=== PATIENT | male | born 1960 | race Hispanic/Latino ===

== ENCOUNTER 2020-02-12 12:32 | Inpatient (IN) | payer OTHER, SELFPAY ==
[2020-02-12] MEDS ORDERED: Adacel (T-DAP) 0.5 ML SYRINGE ONE (12:52)
[2020-02-12] MEDS ORDERED: Morphine 4 MG/ML VIAL ONE (12:52)
--- NOTE | 2020-02-12 12:59 | RAD ---
There is soft tissue swelling about the ankle. Right ankle 3 views HISTORY: Fall. Injury. FINDINGS: Ankle mortise and talar dome are intact with mild osteophytosis. Small lobular calcifications measuring up to 0.4 cm greatest diameter project immediately posterior t o the articular surface of the distal tibia on the lateral view. On the oblique view, a thin linear 0.9 cm ossific fragment with irregular internal margins lies immediately adjacent to the distal talus . Calcaneus is unremarkable on the lateral view. IMPRESSION : Small ossific avulsion from the anterior lateral talus. Probable small intracapsular loose bodies within the posterior joint capsular recess.
--- NOTE | 2020-02-12 13:17 | RAD ---
LEFT ANKLE THREE VIEWS: 02/12/20 HISTORY: Injury from trauma. Fell off a roof. Comminuted calcaneal fracture is noted with vertical fractures extending into the talocalcaneal sinus tarsi region as well as some fractures extending anteriorly into the anterior calcaneus and a somewh at horizontal fracture extending posteriorly resulting in a tongue type fracture. There is marked fla ttening of Bohler's angle. IMPRESSION: Comminuted calcaneal fracture with loss of Bohler's angle. POS: [facility]
[2020-02-12 13:20] LABS: #Eosinphils 0.2 thou/uL (0.0-0.7); #Monocytes 0.7 thou/uL (0.11-0.59); #Neutrophils 4.8 thou/uL (1.40-6.50); %Basophils 0.3 % (0.0-1.0); %Eosinophils 2.5 % (0.0-10.0); %Lymphocytes 34.4 % (21.0-51.0); %Monocytes 7.6 % (0.0-10.0); %Neutrophils 55.2 % (42.0-75.0); Hemoglobin 14.5 g/dL (14.0-18.0); Mean Corpuscular HGB CONC 33.2 g/dL (32.0-36.0); Mean Corpuscular Hemoglobin 32.1 pg (27.0-31.0); Mean Corpuscular Volume 96.9 fL (78.0-98.0); Mean Platelet Volume 8.2 fL (7.4-10.4); Platelet Count 191 thou/uL (130-400); RBC Distribution Width 11.8 % (11.5-14.5); Red Blood Cell (RBC) Count 4.51 mill/uL (4.70-6.10); White Blood Cell (WBC) Count 8.6 thou/uL (4.8-10.8)
[2020-02-12 13:27] LABS: INR-International Normal Ratio 1.1; PTT 25.6 SEC (22.9-36.1); Prothrombin Time 13.9 sec (12.0-14.7)
[2020-02-12 13:42] LABS: ALT (SGPT) 36 U/L (8-55); AST (SGOT) 27 U/L (5-34); Albumin 3.6 g/dL (3.5-5.0); Alkaline Phosphatase 83 U/L (40-110); Anion Gap 11 mmol/L (10-20); BUN (Urea Nitrogen) 18 mg/dL (8.4-25.7); Bilirubin, Total 0.6 mg/dL (0.2-1.2); Calc. Creatinine Clearance 0 mL/min (70-130); Calcium 7.9 mg/dL (7.8-10.44); Carbon Dioxide 22 mmol/L (22-29); Chloride 111 mmol/L (98-107); Estimated GFR-MDRD 75; Globulin 2.5 g/dL (2.4-3.5); Glucose 124 mg/dL (70-105); Potassium 3.7 mmol/L (3.5-5.1); Protein, Total 6.1 g/dL (6.0-8.3); Sodium 140 mmol/L (136-145)
--- NOTE | 2020-02-12 13:54 | CT ---
CERVICAL SPINE CT SCAN WITHOUT IV CONTRAST: 02/12/20 HISTORY: Injury from trauma. FINDINGS: Multilevel disc osteophytosis and facet arthrosis. No evidence for acute fracture or facet dislocatio n. IMPRESSION: Cervical spondylosis without fracture or dislocation. POS: [facility]
--- NOTE | 2020-02-12 14:06 | CT ---
CHEST, ABDOMEN AND PELVIC CT SCAN WITH IV CONTRAST: THORACIC SPINE CT SCAN WITH IV CONTRAST LIMITED LUMBAR SPINE CT SCAN WITH IV CONTRAST LIMITED 02/12/20 HISTORY: Injury from trauma. Chest, abdomen and pelvic CT scan with IV contrast . No evidence for pneumothorax or pleural effusion. No mediastinal hematoma. The aorta appears unremark able. Small hiatal hernia. The visualized liver, gallbladder, pancreas, spleen, adrenal glands are un remarkable. There is some fairly extensive fat stranding in the central mesentery with an associated pseudocapsule appearance with some minimally enlarged mesenteric lymph nodes, evidence for mesent katya panniculitis. It is conceivable given history of recent trauma that this could represent some re present some component of mesenteric contusion but this is a fairly classic appearance for mesenteric panniculitis. No free intraperitoneal fluid within the abdomen or pelvis. No evidence for retroperit flores hematoma. Small fat containing left inguinal and umbilical hernias. IMPRESSION: No significant acute posttraumatic process in the chest, abdomen or pelvis. 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 Other findings as above. THORACIC SPINE CT SCAN WITH IV CONTRAST LIMITED: 02/12/20 IMPRESSION: Thoracic spondylosis without acute fracture or dislocation. LUMBAR SPINE CT SCAN WITH IV CONTRAST LIMITED: IMPRESSION: Disc osteophytosis at L4-L5 with some associated stenosis. No fracture or dislocation. POS: [facility]
[2020-02-12] MEDS ORDERED: Dextrose 50% Abboject 50 ML SYRINGE SLOW IVP PRN (14:23)
[2020-02-12] MEDS ORDERED: Dextrose 5% in Water 1,000 ML IV PRN (14:23)
[2020-02-12] MEDS ORDERED: Morphine 4 MG/ML VIAL SLOW IVP PRN (14:23)
[2020-02-12] MEDS ORDERED: hydrALAZINE 20 MG/ML VIAL SLOW IVP PRN (14:23)
[2020-02-12] MEDS ORDERED: Morphine 2 MG/ML SYRINGE SLOW IVP PRN (14:23)
[2020-02-12] MEDS ORDERED: Ondansetron PF 4 MG/2 ML Vial IVP PRN ×2 (14:23→18:24)
[2020-02-12] MEDS ORDERED: TETANUS AND DIPHTHERIA TOX/PF 0.5 ML DISP.SYRIN IM ONE (14:23)
[2020-02-12] MEDS ORDERED: Bacitracin 1 PK ONE (14:24)
[2020-02-12] MEDS ORDERED: traMADol HCl 50 MG TAB PO PRN ×2 (14:26→18:24)
[2020-02-12] MEDS ORDERED: Cyclobenzaprine 10 MG TAB PO PRN (14:26)
[2020-02-12] MEDS ORDERED: Ibuprofen 600 MG TAB PO PRN (14:26)
[2020-02-12] MEDS ORDERED: Sodium Chloride 0.9% 1,000 ML IV SCH (14:30)
[2020-02-12 14:51] LABS: CK (CPK) 83 U/L (30-200); Magnesium 1.7 mg/dL (1.6-2.6); Phosphorus 2.1 mg/dL (2.3-4.7)
[2020-02-12] MEDS ORDERED: Lidocaine 1% PF 5 ML VIAL ONE (14:57)
[2020-02-12] MEDS ORDERED: Dexamethasone 20 MG/5 ML VIAL ONE (14:57)
[2020-02-12] MEDS ORDERED: Succinylcholine Chloride 20 MG/ML 10 ml SYRINGE FS ONE (14:57)
[2020-02-12] MEDS ORDERED: Glycopyrrolate 0.2 MG/ML 5 ML SYRINGE ONE (14:57)
[2020-02-12] MEDS ORDERED: PROPOFOL 200 MG/20 ML VIAL ONE (14:57)
[2020-02-12] MEDS ORDERED: PHENYLEPHRINE-NS 100 MCG/ML 10 ML SYRINGE ONE (14:57)
[2020-02-12] MEDS ORDERED: Ondansetron PF 4 MG/2 ML Vial ONE (14:57)
[2020-02-12] MEDS ORDERED: Rocuronium Bromide 10 MG/ML (10ML VIAL) ONE (14:57)
[2020-02-12] MEDS ORDERED: Potassium Phosphate 30 MMOL in Sodium Chloride 0.9% 500 ML IVPB SCH (15:15)
[2020-02-12] MEDS ORDERED: HYDROmorphone 0.5 MG/0.5 ML SYRINGE ONE (15:15)
[2020-02-12] MEDS ORDERED: Midazolam HCl 2 mg/2 ml Vial ONE (15:15)
[2020-02-12] MEDS ORDERED: Fentanyl 100 MCG/2 ML VIAL ONE (15:15)
[2020-02-12] MEDS ORDERED: Lidocaine 2% Jelly 5 ML TUBE ONE (15:15)
--- NOTE | 2020-02-12 16:19 | HP ---
This is Christina Michael NP dictating a report for Ever Nichols DO. REQUESTING ER PHYSICIAN: Dr. Tomlin PRIMARY CARE PHYSICIAN: Dr. Liao CONSULTS: Orthopedic SURGERY, Dr. Shea. CHIEF COMPLAINT: Fall from roof, approximately 20 feet, landing on both feet. 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 The patient was attempting to get off the roof using the ladder. The ladder slipped away from him, causing him to fall. He grabbed onto the gutters, the gutters bent and the patient ended up falling onto the concrete ground, landing on both feet. The patient denies hitting his head or losing any consciousness. The patient reports bilateral hand lacerations from the gutters and bilateral feet pain. The patient's pain is currently controlled at this time. The patient was given a tetanus injection, Ancef 2 g IV, and morphine 4 mg IV for pain. The patient refuses repair of finger lacerations with sutures in the emergency room. He reports he gets cuts like this all the time and he doesn't need the sutures. The wounds were cleaned in the ER, antibiotic ointment and bandages applied. Denies neck pain. C-collar cleared. PAST MEDICAL HISTORY: High cholesterol. CURRENT MEDICATIONS: Atorvastatin. ALLERGIES: NO KNOWN DRUG ALLERGIES. SURGICAL HISTORY: Right hand surgery. SOCIAL HISTORY: Denies alcohol use, denies illicit drug use, denies history of smoking or current smoking. REVIEW OF SYSTEMS: A 10-point review of systems is negative unless indicated in the above HPI. OBJECTIVE: VITAL SIGNS: Temperature 98.1, pulse 75, respirations 16, blood pressure 143/72, and SpO2 of 99% on room air. GENERAL: Well-appearing middle aged male, lying in hospital bed in a cervical collar, in no acute distress. HEENT: Head is atraumatic and normocephalic. Pupils are equal bilateral. Extraocular muscles are intact. Mucous membranes are moist. Midface is stable. Oropharynx exam is normal and normal teeth. NECK: No cervical spine tenderness. Normal range of motion. No pain with movement. Trachea midline. No JVD. RESPIRATORY: Equal chest rise and fall. Bilateral breath sounds clear. No wheezing, rales, or rhonchi. Abrasion to right mid axillary. CARDIOVASCULAR: Regular rate and regular rhythm. No murmurs. No pedal edema. ABDOMEN: Soft, nontender, and nondistended. Active bowel sounds. BACK: Tenderness to lumbar spine. Normal range of motion in all extremities. Neurovascularly intact in all extremities. EXTREMITIES: Left lower extremity with ecchymosis and swelling to the left ankle. Distal pulses 2+. Right ankle with ecchymosis, swelling. Distal pulses 2+. Bilateral hands with avulsion type lacerations, left palmar aspect of the distal phalanx of the 4th finger and the palmar aspect of the right hand and other avulsion approximately 1 cm at the proximal phalanx of the 3rd digit. A 2 cm laceration on the palmar aspect of the distal phalanx on the right 2nd digit. There is no active bleeding. NEUROLOGIC: No focal deficits. GCS is 15. LABORATORY DATA: WBC 8.5, RBC 4.51, hemoglobin 14.5, hematocrit 43.7, and platelets 191. PT 13.9, INR 1.1, and aPTT 25.6. Sodium 140, potassium 3.7, chloride 111, carbon dioxide 22, BUN 18, creatinine 1.02, estimated GFR 75, glucose 124, and calcium 7.9. AST 27, ALT 36, alkaline phosphatase 83, and albumin 3.6. DIAGNOSTIC DATA: 1. Right ankle x-ray, impression: Small ossified avulsion from the anterior lateral talus. Probable small intracapsular loose bodies within the posterior joint capsular recess. 2. Left ankle x-ray, impression: Comminuted calcaneal fracture with loss of Bohler's angle. 3. Chest, abdomen, and pelvis CT, impression: No significant acute posttraumatic process in the chest, abdomen, or pelvis. 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 Thoracic spondylosis without acute fracture or dislocation. Disk osteophytosis at L4-L5 with some associated stenosis. No fracture or dislocation. 4. Cervical spine CT, impression: Cervical spondylosis without fracture or dislocation. IMPRESSION: 1. Status post fall from roof, approximately 20 feet. 2. Left comminuted calcaneal fracture with loss of Bohler's angle. 3. Right small avulsion fracture from the anterior lateral talus and small intracapsular loose bodies within the posterior joint capsular recess. 4. Bilateral hand avulsion laceration, the patient refused suturing. PLAN: The patient will be n.p.o. with plan for Orthopedic Surgery, Dr. Shea , to repair lower extremity injuries. Maintenance IV fluids with lactated Ringer's at 120 an hour. We will replace electrolytes. We will place the patient on a pain regimen preoperatively and postoperatively. We will have PT and OT evaluate and treat postoperatively. We will repeat labs in the morning. Wound Care to bilateral hands. The patient was seen and evaluated in the ER by Dr. Nichols. Job ID: [id number] MTDD
[2020-02-12] MEDS ORDERED: Bupivacaine PF 0.5% 30 ML VIAL ONE (18:01)
[2020-02-12] MEDS ORDERED: Bisacodyl 10 MG SUPP PR PRN (18:24)
[2020-02-12] MEDS ORDERED: Cepastat Lozenges 1 LOZ PO PRN (18:24)
[2020-02-12] MEDS ORDERED: Fentanyl 100 MCG/2 ML VIAL SLOW IVP PRN (18:24)
[2020-02-12] MEDS ORDERED: Acetaminophen 325 MG TAB PO PRN (18:24)
[2020-02-12] MEDS ORDERED: Fleet Enema 133 ML BOT PR PRN (18:24)
[2020-02-12] MEDS ORDERED: Ondansetron ODT 4 MG TAB PO PRN (18:24)
[2020-02-12] MEDS ORDERED: Milk Of Magnesia 30 ML UDCUP PO PRN (18:24)
--- NOTE | 2020-02-12 18:28 | RAD ---
LEFT FOOT THREE VIEWS: 02/11/30 HISTORY: Preoperative evaluation. COMPARISON: Radiographs same day. Multiple intraoperative fluoroscopic images are obtained. Satisfactory alignment post reduction. IMPRESSION: Satisfactory post reduction alignment. POS: [facility]
[2020-02-12] MEDS ORDERED: Ketorolac Tromethamine 30 MG/ML VIAL ONE (18:44)
--- NOTE | 2020-02-12 19:58 | OP ---
DATE OF PROCEDURE: 02/12/2020 PREOPERATIVE DIAGNOSES: Comminuted left calcaneus fracture and fracture of the lateral wall of the left talus. POSTOPERATIVE DIAGNOSES: Comminuted left calcaneus fracture and fracture of the lateral wall of the left talus. PROCEDURES PERFORMED: Open reduction and internal fixation of the left calcaneus and left talus. ANESTHESIA: General. DESCRIPTION OF PROCEDURE: The patient was given preoperative IV antibiotics, taken to the operating room, placed in supine position. Satisfactory general anesthesia was performed. The left foot, ankle, and leg were sterilely prepped and draped in usual fashion. After exsanguination, tourniquet on the left proximal calf was raised to 250 mmHg. Initially, a transverse incision was made just distal to the fibula in the region of the subtalar joint. Blunt dissection was made. The peroneal tendons were located and retracted out of the way. The lateral wall of the talus was identified, was reduced and internally fixed with 4.0 cannulated screw. Under fluoroscopic visualization, the facet that had been depressed was located. The facet of the calcaneus was pushed up and then bone grafted with allograft bone chips and then two of the threaded Steinmann pins were placed through the posterior aspect of the calcaneus, pulled through the calcaneus, pulled distally, and then the two pins were brought across the calcaneocuboid joint into the cuboid and this provided good reduction of the calcaneus fracture. It was less wide. It established much of its height and improved Bohler's angle. Again, this was all performed under fluoroscopic visualization. The wounds were closed using 0 Vicryl for the deep tissue, and skin was closed with 3-0 Rapide. The wounds were then infiltrated with a total of 20 mL of 0.5% Marcaine plain. Sterile dressing was applied and the patient was placed in tall boots on both. The right ankle and foot required boot because of a small avulsion fracture off the talus that did not require surgical intervention. After the dressing was applied, the tourniquet was released. The patient was awakened, extubated, and transferred to recovery room in stable condition. ESTIMATED BLOOD LOSS: 30 mL. COMPLICATIONS: None. TOURNIQUET TIME: 77 minutes. Job ID: [id number]
[2020-02-12] MEDS ORDERED: Senokot S 8.6-50 MG TAB PO SCH (21:00)
[2020-02-12] MEDS: Lactated Ringer's 1,000 ML IV SCH ×2 (21:15→23:45)
[2020-02-12] MEDS: Senokot S 8.6-50 MG TAB PO SCH (21:16)
[2020-02-12] MEDS: Bacitracin 1 PK TOP SCH (21:16)
[2020-02-12] MEDS: Acetaminophen 500 MG TAB PO SCH ×2 (21:24→23:43)
[2020-02-12] MEDS: traMADol HCl 50 MG TAB PO SCH ×2 (21:24→23:43)
[2020-02-12 22:51] VITALS: BMI 30.9
[2020-02-12] MEDS: Ketorolac Tromethamine 30 MG/ML VIAL IVP SCH (23:44)
[2020-02-12] MEDS ORDERED: CEFAZOLIN 2 GM in Premix Bag 1 BAG IVPB SCH (23:59)
[2020-02-13] MEDS ORDERED: Morphine 4 MG/ML VIAL SLOW IVP PRN (00:10)
[2020-02-13] MEDS: Acetaminophen 500 MG TAB PO SCH ×2 (05:15→11:13)
[2020-02-13] MEDS: CEFAZOLIN 2 GM in Premix Bag 1 BAG IVPB SCH ×2 (05:16→11:15)
[2020-02-13] MEDS: Ketorolac Tromethamine 30 MG/ML VIAL IVP SCH ×2 (05:16→11:14)
[2020-02-13] MEDS: traMADol HCl 50 MG TAB PO SCH ×2 (05:17→11:13)
--- NOTE | 2020-02-13 06:05 | PRG ---
DATE OF SERVICE: 02/12/2020 SUBJECTIVE: The patient was seen this evening during rounds. He was resting comfortably and asleep with no signs of acute distress. Nursing reported no acute events. He is postop after fixation of his talar and calcaneal fractures. OBJECTIVE: VITAL SIGNS: Temperature 98, pulse 62, respirations 18, oxygen saturation 97% on room air, and blood pressure 135/69. ASSESSMENT: 1. Status post fall from ladder 20 feet. 2. Right talus fracture. 3. Left calcaneal fracture. 4. Lacerations to bilateral hands. PLAN: Continue current regular diet. Discontinue IV fluids postoperatively. The patient to start working with Physical and Occupational Therapy tomorrow. Job ID: [id number]
[2020-02-13 06:06] LABS: #Lymphocytes 0.9 thou/uL (1.20-3.40); #Monocytes 0.7 thou/uL (0.11-0.59); #Neutrophils 9.9 thou/uL (1.40-6.50); %Eosinophils 0.2 % (0.0-10.0); %Lymphocytes 7.6 % (21.0-51.0); %Monocytes 5.8 % (0.0-10.0); %Neutrophils 86.4 % (42.0-75.0); Mean Corpuscular HGB CONC 33.7 g/dL (32.0-36.0); Mean Corpuscular Hemoglobin 32.7 pg (27.0-31.0); Mean Corpuscular Volume 97.2 fL (78.0-98.0); Mean Platelet Volume 7.7 fL (7.4-10.4); Platelet Count 143 thou/uL (130-400); RBC Distribution Width 11.9 % (11.5-14.5); Red Blood Cell (RBC) Count 3.97 mill/uL (4.70-6.10); White Blood Cell (WBC) Count 11.5 thou/uL (4.8-10.8)
[2020-02-13 06:14] LABS: Anion Gap 11 mmol/L (10-20); BUN (Urea Nitrogen) 16 mg/dL (8.4-25.7); Calc. Creatinine Clearance 94 mL/min (70-130); Calcium 7.8 mg/dL (7.8-10.44); Carbon Dioxide 23 mmol/L (22-29); Chloride 108 mmol/L (98-107); Estimated GFR-MDRD 77; Glucose 123 mg/dL (70-105); Magnesium 1.8 mg/dL (1.6-2.6); Potassium 4.2 mmol/L (3.5-5.1); Sodium 138 mmol/L (136-145)
[2020-02-13 06:36] LABS: Phosphorus 3.5 mg/dL (2.3-4.7)
[2020-02-13] MEDS ORDERED: Ferrous Gluconate 324 MG TAB PO SCH (08:00)
[2020-02-13] MEDS: Bacitracin 1 PK TOP SCH ×2 (08:31→14:05)
[2020-02-13] MEDS: Senokot S 8.6-50 MG TAB PO SCH (08:32)
[2020-02-13] MEDS ORDERED: Polyethylene Glycol 3350 17 GM Packet PO SCH (09:00)
[2020-02-13] MEDS ORDERED: Multivitamin W/ Minerals 1 TAB PO SCH (09:00)
[2020-02-13 12:09] VITALS: TEMP 97.8
[2020-02-13] MEDS ORDERED: Ibuprofen 600 MG TAB PO PRN (15:05)
[2020-02-13 16:06] VITALS: BP 125/65
[2020-02-15] MEDS ORDERED: Ibuprofen 600 MG TAB PO PRN (06:00)
== END 2020-02-13 16:46 | disposition home or self-care (01) | DRG 505 ==
LOC: ERS 12:32 → SDC 18:00 → SURG A 20:03
PROVIDERS: ADMIT Surgery; ATTEND Surgery
PROC: 0QSM04Z Reposition Left Tarsal with Internal Fixation Device, Open Approach (ICD-10-PCS; principal; 2020-02-12)
PROC: 3E0234Z Introduction of Serum, Toxoid and Vaccine into Muscle, Percutaneous Approach (ICD-10-PCS; 2020-02-12)
PROC: 0QU Lower Bones, Supplement (ICD-10-PCS; 2020-02-12)
DX: S92.022A Displaced fracture of anterior process of left calcaneus, initial encounter for closed fracture (principal); S92.142A Displaced dome fracture of left talus, initial encounter for closed fracture; S61.412A Laceration without foreign body of left hand, initial encounter; S61.411A Laceration without foreign body of right hand, initial encounter; S92.151A Displaced avulsion fracture (chip fracture) of right talus, initial encounter for closed fracture; E78.00 Pure hypercholesterolemia, unspecified; Z53.29 Procedure and treatment not carried out because of patient's decision for other reasons; W13.2XXA Fall from, out of or through roof, initial encounter; Y92.008 Other place in unspecified non-institutional (private) residence as the place of occurrence of the external cause; Z23 Encounter for immunization; Z79.899 Other long term (current) drug therapy
CPT/HCPCS: 36415; 71260; 72125; 74177; 76000; 80048; 80053; 82550; 83735; 84100; 85025; 85610; 85730; 86850; 86900; 86901; 90471; 90714; 90715; 96365; 96375; C1713; G0390; J0690; J1100; J1170; J1885; J2001; J2250; J2270; J2405; J2704; J3010; J7030; S0020